=== PATIENT | female | born 1970 | race Caucasian/White ===

== ENCOUNTER 2017-07-06 15:04 | Emergency (ER) | payer MEDICARE, MEDICAID ==
[2017-07-06] MEDS ORDERED: NORMAL SALINE 1000 ML 1,000 ML IV ONE (15:14)
--- NOTE | 2017-07-06 15:17 | ER Document Report ---
ED Medical Screen (RME) - General Stated Complaint: ABDOMINAL PAIN Time Seen by Provider: 07/06/17 15:14 Mode of Arrival: Ambulatory Information source: Patient TRAVEL OUTSIDE OF THE [place] IN LAST 30 DAYS: No - HPI Patient complains to provider of: abd pain Onset: Other - pt states she has had abd pain/bloating for the past several days. Denies N/V/D Past Medical History Renal/ Medical History: Denies: Hx Peritoneal Dialysis Physical Exam - Vital signs Vitals: Temp Pulse Resp BP Pulse Ox 98.1 F 111 H 18 156/81 H 96 07/06/17 15:12 07/06/17 15:12 07/06/17 15:12 07/06/17 15:12 07/06/17 15:12 Course - Vital Signs Vital signs: Temp Pulse Resp BP Pulse Ox 98.1 F 111 H 18 156/81 H 96 07/06/17 15:12 07/06/17 15:12 07/06/17 15:12 07/06/17 15:12 07/06/17 15:12
[2017-07-06 16:01] LABS: ALANINE AMINOTRANSFERASE 27 U/L (9-52); ALBUMIN 3.2 g/dL (3.5-5.0); ALKALINE PHOSPHATASE 138 U/L (38-126); ANION GAP 15 (5-19); ASPARTATE AMINO TRANSFERASE 28 U/L (14-36); BILIRUBIN,DIRECT 1.6 mg/dL (0.0-0.4); BILIRUBIN,TOTAL 3.6 mg/dL (0.2-1.3); BLOOD UREA NITROGEN 45 mg/dL (7-20); CALCIUM 8.9 mg/dL (8.4-10.2); CARBON DIOXIDE 25 mmol/L (22-30); CHLORIDE 101 mmol/L (98-107); CREATININE RESULT 4.87 mg/dL (0.52-1.25); GLUCOSE 314 mg/dL (75-110); POTASSIUM 3.9 mmol/L (3.6-5.0); SODIUM 140.7 mmol/L (137-145); TOTAL PROTEIN 6.9 g/dL (6.3-8.2)
[2017-07-06 16:04] LABS: ABSOLUTE EOSINOPHILS # (AUTO) 0.1 10^3/uL (0.0-0.6); ABSOLUTE LYMPHOCYTES (AUTO) 0.8 10^3/uL (0.5-4.7); ABSOLUTE MONOCYTES (AUTO) 0.2 10^3/uL (0.1-1.4); BASOPHILS % (AUTO) 0.6 % (0-2); EOSINOPHILS % (AUTO) 3.3 % (0-6); HEMATOCRIT 32.5 % (36.0-47.0); HEMOGLOBIN 11.2 g/dL (12.0-15.5); HGB HCT DIFFERENCE 1.1; LYMPHOCYTES % (AUTO) 25.3 % (13-45); MEAN CORPUSCULAR HEMOGLOBIN 32.5 pg (27.0-33.4); MEAN CORPUSCULAR HGB CONC 34.4 g/dL (32.0-36.0); MEAN CORPUSCULAR VOLUME 95 fl (80-97); MONOCYTES % (AUTO) 5.5 % (3-13); RED BLOOD COUNT 3.44 10^6/uL (3.72-5.28); RED CELL DISTRIBUTION WIDTH 15.8 % (11.5-14.0); SEGMENTED NEUTROPHILS % (AUTO) 65.3 % (42-78); WHITE BLOOD COUNT 3.1 10^3/uL (4.0-10.5)
--- NOTE | 2017-07-06 16:22 | RADIOLOGY REPORT (SQ) ---
EXAM DESCRIPTION: ACUTE ABDOMEN SERIES COMPLETED DATE/TIME: 07/06/2017 4:15 pm REASON FOR STUDY: abd pain COMPARISON: None. NUMBER OF VIEWS: Three views. TECHNIQUE: Frontal chest, supine abdomen and upright/decubitus abdomen radiographic images acquired. LIMITATIONS: None. FINDINGS: CHEST: Lungs clear of infiltrates. FREE AIR: None. No abnormal gas collections. BOWEL GAS PATTERN: Nonobstructive pattern. No dilated loops or air fluid levels. CALCIFICATIONS: No suspicious calcifications. HARDWARE: None in the abdomen. SOFT TISSUES: No gross mass or suggestion of organomegaly. BONES: No acute fracture. No worrisome bone lesions. OTHER: No other significant finding. IMPRESSION: NO RADIOGRAPHIC EVIDENCE FOR ACUTE ABDOMINAL DISEASE. TECHNICAL DOCUMENTATION: JOB ID: [id number] [employer]- All Rights Reserved
--- NOTE | 2017-07-06 16:48 | ER Document Report ---
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 Just getting speech back. No extremity weakness. D/c'd end of may. Was told that stage 4 renal failure (dr magallon), abdomen has been swelling since june and has pain for [address] magallon is aware of, told her it is ascites. No chest pain or SOB. No v/d. Nausea every other night with decreased appetite. No fever. PMH: liver cirrhosis, ascites, renal failure, htn , DM-insulin. Past surgery: Kirsty, hyst. Diarrhea yesterday, no blood. Not constipated, no hx of obstruction. PCP: dr Tolbert, dr. [id number]). dr. ventura- liver TRAVEL OUTSIDE OF THE [place] IN LAST 30 DAYS: No - Related Data Allergies/Adverse Reactions: No Known Allergies Allergy (Verified 07/06/17 15:41) Home Medications: Current Home Medications Furosemide [Lasix 40 mg Tablet] 40 mg PO BID 07/06/17 [History] Omeprazole [Omeprazole] 1 cap PO DAILY 07/06/17 [History] Propranolol HCl [Inderal 20 mg Tablet] 20 mg PO Q12 07/06/17 [History] Quetiapine Fumarate [Quetiapine Fumarate ER] 1 tab PO QHS 07/06/17 [History] Past Medical History - General Information source: Patient - Social History Smoking Status: Never Smoker Chew tobacco use (# tins/day): No Frequency of alcohol use: None Drug Abuse: None Lives with: Spouse/Significant other Family History: Reviewed & Not Pertinent Patient has suicidal ideation: No Patient has homicidal ideation: No - Past Medical History Cardiac Medical History: Reports: Hx Hypertension Renal/ Medical History: Reports: Hx End Stage Renal Disease. Denies: Hx Peritoneal Dialysis GI Medical History: Reports: Hx Cirrhosis, Other - ascites Review of Systems - Review of Systems Constitutional: No symptoms reported EENT: No symptoms reported Cardiovascular: No symptoms reported Respiratory: No symptoms reported Gastrointestinal: See HPI Genitourinary: No symptoms reported Female Genitourinary: No symptoms reported Musculoskeletal: No symptoms reported Skin: No symptoms reported Hematologic/Lymphatic: No symptoms reported Neurological/Psychological: No symptoms reported Physical Exam - Vital signs Vitals: Temp Pulse Resp BP Pulse Ox 98.1 F 111 H 18 156/81 H 96 07/06/17 15:12 07/06/17 15:12 07/06/17 15:12 07/06/17 15:12 07/06/17 15:12 Interpretation: Normal - General General appearance: Alert, Other - chronically ill appearing - HEENT Head: Normocephalic, Atraumatic Eyes: Normal Conjunctiva: No: Icteric Pupils: PERRL Mouth/Lips: Normal Mucous membranes: Dry Neck: Supple. No: Lymphadenopathy - Respiratory Respiratory status: No respiratory distress Chest status: Nontender Breath sounds: Normal Chest palpation: Normal - Cardiovascular Rhythm: Regular Heart sounds: Normal auscultation Murmur: No - Abdominal Inspection: Normal Distension: Distended, Tympanitic, Fluid wave Bowel sounds: Normal Tenderness: Nontender Organomegaly: No organomegaly - Back Back: Normal, Nontender. No: CVA tenderness - Extremities General upper extremity: Normal inspection, Nontender, Normal color, Normal ROM , Normal temperature General lower extremity: Normal inspection, Nontender, Normal color, Normal ROM , Normal temperature, Normal weight bearing. No: Luis Carlos's sign - Neurological Neuro grossly intact: Yes Cognition: Normal Orientation: AAOx4 Tom Coma Scale Eye Opening: Spontaneous Oakley Coma Scale Verbal: Oriented Tom Coma Scale Motor: Obeys Commands Tom Coma Scale Total: 15 Speech: Normal Motor strength normal: LUE, RUE, LLE, RLE Sensory: Normal - Psychological Associated symptoms: Normal affect, Normal mood - Skin Skin Temperature: Warm Skin Moisture: Dry Skin Color: Normal Course - Re-evaluation Re-evalutation: 07/06/17 18:15 spoke with radiologist carl jean will dx if this is ascities. 07/06/17 19:00 dr. ibarra examined the pt, determining if US is needed tonight that I ordered. Pt is here because it is difficult to sleep due to enlarging abdomen. He wants me to consult with Dr. ventura. calling him on his cell phone. 07/06/17 19:[address] Ventura, he will see her sunday. will consider paracentisis at that time. Dr. Ibarra is fine with that., will explain to the pt. abd US done 2016 showed small ascites 07/06/17 19:16 Dr. Magallon said that she can follow-up with him next week after consulting with him about the lab work today compared to May 14. I will have the patient return to the emergency room if she develops a fever, shortness of breath, chest pain, increased abdominal pain. 07/06/17 19:21 - Vital Signs Vital signs: Temp Pulse Resp BP Pulse Ox 98.1 F 101 H 27 H 145/61 H 100 07/06/17 15:16 07/06/17 16:57 07/06/17 19:01 07/06/17 19:01 07/06/17 19:01 - Laboratory Result Diagrams: 07/06/17 15:27 07/06/17 15:27 Laboratory results interpreted by me: 07/06/17 07/06/17 15:27 15:27 WBC 3.1 L RBC 3.44 L Hgb 11.2 L Hct 32.5 L RDW 15.8 H Plt Count 30 L* BUN 45 H Creatinine 4.87 H Est GFR ( Amer) 11 L Est GFR (Non-Af Amer) 9 L Glucose 314 H Total Bilirubin 3.6 H Direct Bilirubin 1.6 H Alkaline Phosphatase 138 H Albumin 3.2 L Discharge - Discharge Clinical Impression: Abdominal distention, Cirrhosis of the liver, Stage IV renal disease, Hyperglycemia with diabetes Condition: Good Disposition: HOME, SELF-CARE Instructions: Abdominal Pain ([facility]), Cirrhosis ([facility]), Diabetes ([facility]), Intravenous (IV) Fluids ([facility]), Kidney Failure ([facility]) Additional Instructions: call dr. ventura on sunday for appointment on Sunday for arrangement of possible abdominal fluid withdrawal to er this if increased pain, vomiting, chest pain, shortness of breath , fever or any concerns see dr. magallon next week. Please complete the patient satisfaction survey if you get one, and return it.. If you do not receive a survey, then you can go to the [facility] website, [email or web address] and place your comments about your very good care. Thank you very much. It was a pleasure being your medical provider today. Referrals: RAFI ESQUIVEL MD [Primary Care Provider] - Follow up as needed
[2017-07-06 19:13] VITALS: BP 145/61
== END 2017-07-06 19:46 | disposition home or self-care (01) ==
LOC: ER 15:04
DX: K74.60 Unspecified cirrhosis of liver (principal); I12.9 Hypertensive chronic kidney disease with stage 1 through stage 4 chronic kidney disease, or unspecified chronic kidney disease; E11.22 Type 2 diabetes mellitus with diabetic chronic kidney disease; N18.4 Chronic kidney disease, stage 4 (severe); R14.0 Abdominal distension (gaseous); R63.0 Anorexia; Z86.73 Personal history of transient ischemic attack (TIA), and cerebral infarction without residual deficits
CPT/HCPCS: 99284; 96360; 36415; 83690; 85025; 80053; 74022; J7030